=== PATIENT | female | born 1960 | race African-American/Black ===

== ENCOUNTER 2016-09-24 17:13 | Emergency (ER) | payer OTHER ==
[2016-09-24] MEDS ORDERED: ATENOLOL (17:24)
== END 2016-09-24 18:50 | disposition home or self-care (01) ==
LOC: SED 17:13
DX: F41.9 Anxiety disorder, unspecified (principal); E11.9 Type 2 diabetes mellitus without complications; I10 Essential (primary) hypertension; F17.210 Nicotine dependence, cigarettes, uncomplicated
CPT/HCPCS: 99283